=== PATIENT | female | born 1990 | race Two or more races ===

== ENCOUNTER 2017-11-12 14:57 | Inpatient (IN) | payer OTHER ==
[~2017-11-12] VITALS: Ht 162.6 cm; Wt 2.3 kg
[2017-11-14] MEDS ORDERED: PRENATAL FORMU1 EAC1 PO (07:24)
== END 2017-11-17 11:47 | disposition home or self-care (01) | DRG 765 ==
LOC: O/R 11-14 06:18 → OB/GYN 11-14 06:18 → LDR 11-14 09:15 → OB/GYN 11-14 15:18
PROVIDERS: Obstetrics & Gynecology
PROC: 4A1HXCZ Monitoring of Products of Conception, Cardiac Rate, External Approach (ICD-10-PCS; 2017-11-14)
PROC: 4A033R1 Measurement of Arterial Saturation, Peripheral, Percutaneous Approach (ICD-10-PCS; 2017-11-14)
PROC: 10D00Z1 Extraction of Products of Conception, Low, Open Approach (ICD-10-PCS; principal; 2017-11-14 09:15)
DX: O34.211 Maternal care for low transverse scar from previous cesarean delivery (principal); O30.003 Twin pregnancy, unspecified number of placenta and unspecified number of amniotic sacs, third trimester; Z3A.37 37 weeks gestation of pregnancy; Z37.2 Twins, both liveborn